=== PATIENT | female | born 1975 ===

== ENCOUNTER 2018-07-17 07:37 | Inpatient (IN) | payer OTHER ==
[2018-07-14 13:48] VITALS: BMI 27.4
[2018-07-17] MEDS ORDERED: ceFAZolin IV 1 gm in Dextrose 2 GM/100 ML BAG IVPB ONE (07:49)
[2018-07-17] MEDS ORDERED: Clindamycin 2% Vaginal Cream(40 gm) ONE (07:50)
[2018-07-17] MEDS ORDERED: Bupivacaine 0.5% Inj(30mL) IJ ONE (09:43)
[2018-07-17] MEDS ORDERED: Midazolam 2 MG/2 ML VIAL ONE (09:53)
[2018-07-17] MEDS ORDERED: Propofol 10 mg/ml Inj (20 ML) ONE (09:54)
[2018-07-17] MEDS ORDERED: Rocuronium 10 mg/ml (5 ml) ONE (10:17)
[2018-07-17] MEDS ORDERED: Neostigmine Methylsulfate 3mg/3ml Syringe IV ONE (12:30)
[2018-07-17] MEDS ORDERED: Morphine 4 MG/ML VIAL ONE (12:35)
[2018-07-17] MEDS: HYDROmorphone 0.5 mg/0.5 ml ISec IVP PRN ×2 (13:04→13:53)
--- NOTE | 2018-07-17 13:43 | PCM.SURG1 ---
Surgeon's Initial Post Op Note - Surgeon's Notes Surgeon: Dr. Montoya Client Technical Specialist: Dr. Chavarria Type of Anesthesia: General LMA Anesthesia Administered By: Dr. Escobedo Pre-Operative Diagnosis: 43 yo with Chronic pelvic pain, menorrhagia, fibroid uterus and complex RiGHTovarian cyst Operative Findings: Av uterus 8 wks gestation ,multiple adhessions due to endometriosis ,Right endometrioma Post-Operative Diagnosis: 43 yo with [place] adhesions, fibroid uterus , chronic pelvic pain endometriosis , endometrioma on right side Operation Performed: Laparoscopy Hysterectomy , ADRIAN, BSO , Cystoscopy Specimen/Specimens Removed: Uterus , bilateral tubes and ovaries Estimated Blood Loss: EBL {In ML}: 50 Blood Products Given: N/A Drains Used: No Drains Post-Op Condition: Good Date of Surgery/Procedure: 07/17/18 Time of Surgery/Procedure: 13:44
[2018-07-17] MEDS: ceFAZolin IV 1 gm in Dextrose 1 GM/50 ML BAG IVPB SCH (17:34)
[2018-07-17] MEDS: Oxycodone/Acetaminophen 5/325 mg Tab PO PRN (19:55)
[2018-07-18] MEDS: ceFAZolin IV 1 gm in Dextrose 1 GM/50 ML BAG IVPB SCH ×2 (02:00→09:40)
[2018-07-18] MEDS: Oxycodone/Acetaminophen 5/325 mg Tab PO PRN ×3 (02:26→13:59)
[2018-07-18 07:19] LABS: BASO % 0.2 % (0.0-2.0); EOS % 0.1 % (0.0-4.0); LYMPH # 1.7 K/uL (1.0-4.3); LYMPH % 20.5 % (20.0-40.0); MEAN CELL VOLUME 88.5 fL (81.0-99.0); MEAN CORPUSCULAR HEMOGLOBIN 30.6 pg (27.0-31.0); MEAN CORPUSCULAR HGB CONC 34.5 g/dL (33.0-37.0); MONO # 0.6 K/uL (0.0-0.8); NEUT # 6.1 K/uL (1.8-7.0); NEUT % 72.2 % (50.0-75.0); RBC 3.55 Mil/uL (3.80-5.20); RED CELL DISTRIBUTION WIDTH 12.8 % (11.5-14.5)
[2018-07-18 07:25] LABS: HEMOGLOBIN 10.8 g/dL (11.0-16.0); WHITE BLOOD COUNT 8.4 K/uL (4.8-10.8)
--- NOTE | 2018-07-18 19:46 | CP.PCM.PN ---
Subjective - Date & Time of Evaluation Date of Evaluation: 07/18/18 Time of Evaluation: 19:44 - Subjective Subjective: pt doing well, starting meet postop milestones, still difficulty ambulating, no gas, no n/v Objective - Vital Signs/Intake and Output Vital Signs (last 24 hours): Temp Pulse Resp BP Pulse Ox 99 F 76 18 85/54 L 97 07/18/18 16:00 07/18/18 16:00 07/18/18 16:00 07/18/18 16:00 07/18/18 16:00 Intake and Output: 07/18/18 07/19/18 18:59 06:59 Intake Total 3325 Output Total 700 Balance 2625 - Medications Medications: Current Medications Ascorbic Acid (Vitamin C 500 Mg Tab) 500 mg PO DAILY [facility] Last Admin: 07/18/18 09:17 Dose: 500 mg Docusate Sodium (Colace) 100 mg PO BID [facility] Last Admin: 07/18/18 17:45 Dose: 100 mg Ferrous Sulfate (Feosol) 325 mg PO TID [facility] Last Admin: 07/18/18 17:45 Dose: 325 mg Ibuprofen (Motrin Tab) 600 mg PO TID [facility] Last Admin: 07/18/18 19:24 Dose: 600 mg Ondansetron HCl (Zofran Inj) 4 mg IVP ONCE PRN PRN Reason: Nausea/Vomiting Oxycodone/Acetaminophen (Percocet 5/325 Mg Tab) 1 tab PO Q4 PRN PRN Reason: Pain, Mild (1-3) Stop: 07/20/18 14:05 Last Admin: 07/18/18 13:59 Dose: 1 tab - Labs Labs: 07/18/18 07:09 - Constitutional Appears: Well, Non-toxic, No Acute Distress - Head Exam Head Exam: NORMAL INSPECTION, NORMOCEPHALIC - Respiratory Exam Respiratory Exam: NORMAL BREATHING PATTERN - GI/Abdominal Exam GI & Abdominal Exam: Soft Additional comments: slight gaseous distention, appropriately tender, incision dressing c/d/i - Extremities Exam Extremities Exam: Full ROM, Normal Inspection Assessment and Plan - Assessment and Plan (Free Text) Assessment: pod#1 tlh bso Plan: meeting some postop milestones, if continue to advance in ambulation and pain better controlled, discharge tomorrow
--- NOTE | 2018-07-18 19:54 | CP.PCM.PN ---
Subjective - Date & Time of Evaluation Date of Evaluation: 07/18/18 Time of Evaluation: 11:30 - Subjective Subjective: Pt seen and examined per Dr. Ospina's request Feeling better although complains of generalized abdominal pains but controlled with pain medication Pelaez catheter removed a little while ago and unable to void yet Vaginal packing also removed with ease and no bleeding noted No flatus and no BM Eating OK Not drinking much water and not ambulating yet Objective - Vital Signs/Intake and Output Vital Signs (last 24 hours): Temp Pulse Resp BP Pulse Ox 99 F 76 18 85/54 L 97 07/18/18 16:00 07/18/18 16:00 07/18/18 16:00 07/18/18 16:00 07/18/18 16:00 Intake and Output: 07/18/18 07/19/18 18:59 06:59 Intake Total 3325 Output Total 700 Balance 2625 - Medications Medications: Current Medications Ascorbic Acid (Vitamin C 500 Mg Tab) 500 mg PO DAILY [facility] Last Admin: 07/18/18 09:17 Dose: 500 mg Docusate Sodium (Colace) 100 mg PO BID [facility] Last Admin: 07/18/18 17:45 Dose: 100 mg Ferrous Sulfate (Feosol) 325 mg PO TID [facility] Last Admin: 07/18/18 17:45 Dose: 325 mg Ibuprofen (Motrin Tab) 600 mg PO TID [facility] Last Admin: 07/18/18 19:24 Dose: 600 mg Ondansetron HCl (Zofran Inj) 4 mg IVP ONCE PRN PRN Reason: Nausea/Vomiting Oxycodone/Acetaminophen (Percocet 5/325 Mg Tab) 1 tab PO Q4 PRN PRN Reason: Pain, Mild (1-3) Stop: 07/20/18 14:05 Last Admin: 07/18/18 13:59 Dose: 1 tab - Labs Labs: 07/18/18 07:09 - Constitutional Appears: Well, No Acute Distress - Respiratory Exam Respiratory Exam: NORMAL BREATHING PATTERN - Cardiovascular Exam Cardiovascular Exam: REGULAR RHYTHM - GI/Abdominal Exam GI & Abdominal Exam: Soft (Dressings clean and intact), Normal Bowel Sounds - Extremities Exam Extremities Exam: Normal Capillary Refill, Normal Inspection - Neurological Exam Neurological Exam: Alert, Oriented x3 - Skin Skin Exam: Dry, Intact Assessment and Plan - Assessment and Plan (Free Text) Assessment: POD # 1 S/P Laparoscopic Asisted Vaginal Hysterectomy Attempting to void and counseled to increase po water intake Encouraged to increase activity Stable Requesting D/C home in AM Plan: Will measure urinary output and proceed accordingly Encourage activity and water po Will D/C iv fluids Continue pain medication as prescribed Anticipate D/c home in AM
[2018-07-19 00:20] VITALS: O2SAT 99
[2018-07-19 08:47] VITALS: BP 109/64; PULSE 72; RESP 18; TEMP 98.9
[2018-07-19] MEDS: Oxycodone/Acetaminophen 5/325 mg Tab PO PRN (10:18)
[2018-07-19] MEDS ORDERED: Influenza Vaccine 60 MCG/0.5 ML SYR (3 yr & up) IM ONE (10:50)
--- NOTE | 2018-08-08 09:29 | OP ---
PROCEDURE DATE: 07/17/2018 PREOPERATIVE DIAGNOSES: A 44-year-old female with chronic pelvic pain, menorrhagia, fibroid uterus, and a complex right ovarian cyst. POSTOPERATIVE DIAGNOSES: A 44-year-old with multiple adhesions, leiomyomas, chronic pelvic pain, endometriosis with an endometrioma on the right side, which was approximately 8 cm. PROCEDURE: Laparoscopic total hysterectomy, lysis of adhesions, bilateral salpingo-oophorectomy, cystoscopy. SURGEON: Jessica Montoya MD CUSTOMER SERVICE ANALYST: Negar Ospina MD TYPE OF ANESTHESIA: General LMA. ANESTHESIOLOGIST: Pina Mancilla MD SPECIMEN: Uterus with cervix, tubes, and ovaries. ESTIMATED BLOOD LOSS: Approximately 50 mL. URINE OUTPUT: At the end of the procedure was 300 mL. COMPLICATIONS: None. INDICATIONS: The patient was a 44-year-old female patient who was known to have progressive menorrhagia who in the past had underwent endometrial ablation, had an enlarged uterus invasively with a right ovarian mass, which was measuring approximately 8 cm and was suffering from chronic pelvic pain. The patient requested definite management with the hysterectomy after discussing all the possible medical options. Risk factors were explained, but not limited to risk factors including an infection, bleeding, damage to the surrounding organs and tissues, complications from anesthesia, and possible . All questions were answered. Once the questions were answered, informed consent was obtained; in that particular instance, she was then transported to the operating room where general anesthesia was found to be adequate. She was then placed in dorsal lithotomy position, and the patient was prepped and draped in normal sterile fashion. Beginning at the vagina, a Pelaez catheter was inserted under sterile condition and left in . A weighted speculum was placed into the vagina. The anterior lip of the cervix was grasped with single-tooth tenaculum. The cervical os was dilated up to 6 Ez dilators. In that particular instance, the VCare device medium was inserted. Once insertion, the weighted speculum and the instruments were removed from the vagina and the attention was then turned to the abdominal cavity. Bupivacaine 0.5% solution was used to infiltrate all the port sites, beginning in the supraumbilical area. The skin was infiltrated with 2 mL of Bupivacaine solution and a 5 mm trocar optic view under direct visualization was inserted, and 4 L of CO2 gas was given. Excellent hemostasis was noted. The laparotomy was introduced and confirmed directly. Examination of the peritoneal cavity revealed that she had multiple adhesions and she had a complex ovarian cyst on the right side. The patient was then placed in deep Trendelenburg, and two more 5 mm trocars were placed, one on the left and then one on the right. Under direct visualization, the uterus was upheld from below and elevated. It was noted that she had a large uterus so in that particular instance beginning on the right side, the infundibular ligament was identified by lifting the tubes towards the anterior wall of the abdomen. The ureter was confirmed along the pelvic side wall and peristalsis was noted. The LigaSure device was then used to clamp and ligate the IP ligament in three sequential bites with LigaSure. The IP was then cut midsection again being sure to be clear of the ureter. Following this, the broad ligament was subsequently grasped, ligated and cut in the direction of the round ligament; hugging next to the fallopian tube, the round ligament was then ligated and cut followed by the utero-ovarian ligament. Following this, the anterior leads of the broad ligament was taken down on the left side dissecting towards the peritoneal resection of the base of the bladder adjacent to the cervix. The same process was then repeated on the left side such both sides met, the anterior leaflets had been appropriately skeletonized. Once the bladder was appropriately dissected free from the lower uterine segment and the tissue was skeletonized, the uterine arteries were bilaterally clamped and ligated. Pedicles were then checked and hemostasis at the level of the plastic cup of uterine manipulator. The vaginal vault was excised circumferential with a monopolar hook. The uterus was then delivered to the vagina and sent to Pathology. A sterile glove was placed into the vagina to form as a seal, and all the pedicles as well as cuff edges were examined. Hemostasis were achieved. Excellent hemostasis was noted. So the uterus was delivered just to confirm with the cervix and both right and left tube and ovaries has complex ovarian cyst. Excellent hemostasis was noted. A complete surveillance of the uterine cavity was then performed in that particular instance. All ports were then removed under direct visualization. The plan to remove the ports FloSeal was placed at the vaginal cuff. The cuff was closed below with 0 Vicryl, and during the procedure, all sponges and instruments were correct x2, but prior to leaving the room, a cystoscopy was performed with a 70-degree scope. Ureteral jets were identified, bilaterally were patent. In that particular instance, a new Pelaez was then placed and vaginal packing was placed. The patient tolerated the procedure well. The patient was then taken to the recovery room in stable condition. Jessica Montoya MD
== END 2018-07-19 14:52 | disposition home or self-care (01) | DRG 519 ==
LOC: C.SDS 07:37 → C.4M 13:55
PROVIDERS: ADMIT Obstetrics & Gynecology; ATTEND Obstetrics & Gynecology
PROC: 0UT7FZZ Resection of Bilateral Fallopian Tubes, Via Natural or Artificial Opening With Percutaneous Endoscopic Assistance (ICD-10-PCS; 2018-07-17)
PROC: 0UT2FZZ Resection of Bilateral Ovaries, Via Natural or Artificial Opening With Percutaneous Endoscopic Assistance (ICD-10-PCS; 2018-07-17)
PROC: 0UT9FZZ Resection of Uterus, Via Natural or Artificial Opening With Percutaneous Endoscopic Assistance (ICD-10-PCS; principal; 2018-07-17 09:15)
DX: D25.1 Intramural leiomyoma of uterus (principal); G89.29 Other chronic pain; N94.9 Unspecified condition associated with female genital organs and menstrual cycle; N92.0 Excessive and frequent menstruation with regular cycle; N83.8 Other noninflammatory disorders of ovary, fallopian tube and broad ligament; N83.291 Other ovarian cyst, right side

== ENCOUNTER 2019-02-17 10:17 | Outpatient (CLI) | payer OTHER | END 2019-02-17 10:18 | disposition home or self-care (01) | LOC: C.LAB 10:17 | DX: D50.0 Iron deficiency anemia secondary to blood loss (chronic) (principal); M32.9 Systemic lupus erythematosus, unspecified; M06.9 Rheumatoid arthritis, unspecified; E11.9 Type 2 diabetes mellitus without complications; E01.8 Other iodine-deficiency related thyroid disorders and allied conditions; E78.2 Mixed hyperlipidemia; E50.9 Vitamin A deficiency, unspecified ==

== ENCOUNTER 2019-02-21 08:58 | Outpatient (CLI) | payer OTHER | END 2019-02-21 09:20 | disposition home or self-care (01) | LOC: C.CTH 08:58 ==